=== PATIENT | male | born 1960 | race Caucasian/White ===

== ENCOUNTER 2017-09-24 10:37 | Emergency (ER) | payer BC, OTHER ==
[2017-09-24 10:48] VITALS: TEMP 98.5; O2SAT 98
[2017-09-24] MEDS ORDERED: Lidocaine 2% MPF (5 ml) Inj ONE (11:13)
--- NOTE | 2017-09-24 11:28 | C.PDOC ---
History Of Present Illness 57 y/o male presents to the ED complaining of a painful lump to the right buttocks, present for the past several weeks. Patient reports applying warm compresses and doing warm salt water soaks at home. Yesterday he noticed pus draining from the area. Otherwise he denies any fever, numbness, or weakness. Time Seen by Provider: 09/24/17 11:12 Chief Complaint (Nursing): Abnormal Skin Integrity History Per: Patient History/Exam Limitations: no limitations Onset/Duration Of Symptoms: Days Current Symptoms Are (Timing): Still Present Quality Of Symptoms: Draining Past Medical History Reviewed: Historical Data, Nursing Documentation, Vital Signs Vital Signs: Last Vital Signs Temp 98.5 F 09/24/17 10:45 Pulse 79 09/24/17 12:33 Resp 16 09/24/17 12:33 BP 129/85 09/24/17 12:33 Pulse Ox 98 09/24/17 12:33 - Medical History PMH: Diabetes, Hyperlipidemia Family History: States: No Known Family Hx - Social History Hx Tobacco Use: No Hx Alcohol Use: No Hx Substance Use: No - Immunization History Hx Tetanus Toxoid Vaccination: No Hx Influenza Vaccination: No Hx Pneumococcal Vaccination: No Review Of Systems Except As Marked, All Systems Reviewed And Found Negative. Constitutional: Negative for: Fever, Chills Skin: Positive for: Other (swollen lump to right buttocks, (+) drainage) Neurological: Negative for: Weakness, Numbness Physical Exam - Physical Exam Appears: Non-toxic, No Acute Distress Skin: Warm, Dry, Other (3.5 cm area of erythematous swelling to the right buttocks, (+) tender to palpation, with mild fluctuance) Head: Atraumatic, Normacephalic Eye(s): bilateral: Normal Inspection Oral Mucosa: Moist Neck: Normal ROM Extremity: Bilateral: Atraumatic, Normal ROM Neurological/Psych: Oriented x3, Normal Speech ED Course And Treatment O2 Sat by Pulse Oximetry: 98 (RA) Pulse Ox Interpretation: Normal - Incision & Drainage Of Abscess Anesthesia: Lidocaine 2% Prep Used: Sterile Water, Betadine Procedure: Incised W/Scalpel Blade#: (11), Irrigated Cavity W/Saline Medical Decision Making Medical Decision Making: Impression: Abscess to right buttocks Plan: Area of mild fluctuance noted, will attempt to perform I&D to drain any additional fluid. Given initial doses of PO Keflex and Bactrim. I&D performed *See procedure note* No pus was expressed from the wound. No packing applied. Patient is medically stable for discharge home. Given prescriptions for antibiotics and wound care instructions. Disposition Counseled Patient/Family Regarding: Diagnosis, Need For Followup, Rx Given - Disposition Referrals: Aiyana Harrington MD [Staff Provider] - Disposition: HOME/ ROUTINE Disposition Time: 12:20 Condition: STABLE Additional Instructions: TAKE ANTIBIOTICS UNTIL COMPLETED. FOLLOW UP WITH THE GENERAL SURGEON WITHIN 3-5 DAYS FOR WOUND CHECK. RETURN IF WORSENED. Prescriptions: Cephalexin [Keflex] 500 mg PO BID #14 capsule Sulfamethoxazole/Trimethoprim [Bactrim DS 800 mg-160 mg] 1 tab PO BID #14 tab Instructions: Skin Abscess Forms: [facility] (Belarusian) - POA Present On Arrival: None - Clinical Impression Clinical Impression: Abscess - PA / DISPATCHER REFINERY / Resident Statement MD/DO has reviewed & agrees with the documentation as recorded. - Scribe Statement The provider has reviewed the documentation as recorded by the Scribe (Gisela Nuno) All medical record entries made by the Scribe were at my direction and personally dictated by me. I have reviewed the chart and agree that the record accurately reflects my personal performance of the history, physical exam, medical decision making, and the department course for this patient. I have also personally directed, reviewed, and agree with the discharge instructions and disposition.
[2017-09-24] MEDS ORDERED: Tmp-Smz 800 mg-160 mg DS Tab PO STA (11:55)
[2017-09-24] MEDS ORDERED: Tmp-Smz 800 mg-160 mg DS Tab ONE (12:01)
[2017-09-24 12:34] VITALS: BP 129/85; PULSE 79; RESP 16
== END 2017-09-24 12:33 | disposition home or self-care (01) ==
LOC: C.ER 10:37
DX: L02.31 Cutaneous abscess of buttock (principal); E78.5 Hyperlipidemia, unspecified; E11.9 Type 2 diabetes mellitus without complications

== ENCOUNTER 2017-12-01 14:06 | Inpatient (IN) | payer OTHER ==
[2017-12-01 15:07] LABS: BASO % 0.9 % (0.0-2.0); EOS # 0.2 K/uL (0.0-0.7); EOS % 3.3 % (0.0-4.0); HEMOGLOBIN 14.1 g/dL (12.0-18.0); LYMPH # 1.3 K/uL (1.0-4.3); LYMPH % 28.4 % (20.0-40.0); MEAN CORPUSCULAR HEMOGLOBIN 31.5 pg (27.0-31.0); MEAN CORPUSCULAR HGB CONC 34.6 g/dL (33.0-37.0); MEAN PLATELET VOLUME 6.7 fL (7.2-11.7); MONO # 0.5 K/uL (0.0-0.8); MONO % 11.5 % (0.0-10.0); NEUT # 2.6 K/uL (1.8-7.0); NEUT % 55.9 % (50.0-75.0); NRBC % 0.3 % (0.0-2.0); RBC 4.46 Mil/uL (4.40-5.90); RED CELL DISTRIBUTION WIDTH 13.6 % (11.5-14.5); WHITE BLOOD COUNT 4.6 K/uL (4.8-10.8)
[2017-12-01 15:18] LABS: ALB/GLOB RATIO 1.1 (1.0-2.1); ALBUMIN 4.2 g/dL (3.5-5.0); ALT/SGPT 58 U/L (21-72); AST/SGOT 39 U/L (17-59); BLOOD UREA NITROGEN 12 mg/dL (9-20); CALCIUM 8.9 mg/dl (8.6-10.4); GFR NON-AFRICAN AMERICAN > 60
--- NOTE | 2017-12-01 15:26 | C.PDOC ---
History Of Present Illness 57 y/o male presents to the ER for evaluation of diarrhea which has been present for the past 4 days. Patient states that he was in [facility] for 1 month and he came back on 11/19/17. He notes that he has been taking Loperamide without relief. Patient is also complaining of multiple pimples to face. He states that he was evaluated by his PMD, , and his PMD advised him to visit the ER. His PMD was concerned that he may have MRSA so he sent him for labwork, blood cultures, IV abx, ID consult, and possible admission. Denies having fever, chills, CP, and SOB. Time Seen by Provider: 12/01/17 14:23 Chief Complaint (Nursing): Abdominal Pain History Per: Patient History/Exam Limitations: no limitations Onset/Duration Of Symptoms: Days Current Symptoms Are (Timing): Still Present Severity: Moderate Past Medical History Reviewed: Historical Data, Nursing Documentation, Vital Signs Vital Signs: Last Vital Signs Temp 97.5 F L 12/01/17 14:12 Pulse 78 12/01/17 14:12 Resp 18 12/01/17 14:12 BP 132/81 12/01/17 14:12 Pulse Ox 99 12/01/17 14:12 - Medical History PMH: Diabetes, Hyperlipidemia Other Surgeries: Hx of surgeries Family History: States: No Known Family Hx - Social History Hx Tobacco Use: No Hx Alcohol Use: No Hx Substance Use: No - Immunization History Hx Tetanus Toxoid Vaccination: No Hx Influenza Vaccination: No Hx Pneumococcal Vaccination: No Review Of Systems Except As Marked, All Systems Reviewed And Found Negative. Constitutional: Negative for: Fever, Chills Cardiovascular: Negative for: Chest Pain Respiratory: Negative for: Shortness of Breath Gastrointestinal: Positive for: Diarrhea. Negative for: Nausea, Vomiting Skin: Positive for: Other (pimples on face) Physical Exam - Physical Exam Appears: Non-toxic, No Acute Distress Skin: Warm, Dry, Other (left nostril: mild erythema with minimal induration, no purulent discharge right cheek: scabbed lesion with no erythema, no induration, and no purulent discharge) Head: Atraumatic, Normacephalic Eye(s): bilateral: Normal Inspection Nose: Normal Oral Mucosa: Moist Neck: Supple Chest: Symmetrical Cardiovascular: Rhythm Regular Respiratory: Normal Breath Sounds, No Rales, No Rhonchi, No Wheezing Gastrointestinal/Abdominal: Soft, Tenderness (mild diffuse tenderness), No Guarding, No Rebound Neurological/Psych: Oriented x3, Normal Speech ED Course And Treatment - Laboratory Results Result Diagrams: 12/01/17 15:00 12/01/17 15:00 O2 Sat by Pulse Oximetry: 99 (RA) Pulse Ox Interpretation: Normal Medical Decision Making Medical Decision Making: Plan: --Labs Lab results discussed wtih patient. Case discussed with Dr. Stephen for admission per PMD request. Accepts patient for admission. No abx given at this time- pending ID consult and blood cultures, however patient is afebrile with no leukocytosis at this point. Disposition - Disposition Disposition: HOSPITALIZED Disposition Time: 15:45 Condition: GOOD - Clinical Impression Clinical Impression: Facial rash, Diarrhea - Scribe Statement The provider has reviewed the documentation as recorded by the Chilango Quinteros Provider Attestation: All medical record entries made by the Chilango were at my direction and personally dictated by me. I have reviewed the chart and agree that the record accurately reflects my personal performance of the history, physical exam, medical decision making, and the department course for this patient. I have also personally directed, reviewed, and agree with the discharge instructions and disposition.
[2017-12-01 17:11] VITALS: RESP 20
[2017-12-01] MEDS: Ceftaroline 600 MG in Sodium Chloride 0.9% 100 ML IVPB SCH (21:39)
[2017-12-01] MEDS: Sodium Chloride 0.45% 1,000 ML IV SCH (21:39)
[2017-12-02 07:43] LABS: BASO % 0.8 % (0.0-2.0); EOS # 0.2 K/uL (0.0-0.7); EOS % 4.2 % (0.0-4.0); LYMPH # 1.5 K/uL (1.0-4.3); LYMPH % 32.8 % (20.0-40.0); MEAN CELL VOLUME 90.3 fL (80.0-94.0); MEAN CORPUSCULAR HEMOGLOBIN 32.2 pg (27.0-31.0); MEAN CORPUSCULAR HGB CONC 35.6 g/dL (33.0-37.0); MEAN PLATELET VOLUME 7.2 fL (7.2-11.7); MONO # 0.6 K/uL (0.0-0.8); MONO % 12.9 % (0.0-10.0); NEUT # 2.3 K/uL (1.8-7.0); NEUT % 49.3 % (50.0-75.0); NRBC % 0.1 % (0.0-2.0); RBC 4.04 Mil/uL (4.40-5.90); RED CELL DISTRIBUTION WIDTH 13.3 % (11.5-14.5); WHITE BLOOD COUNT 4.7 K/uL (4.8-10.8)
[2017-12-02 07:44] LABS: ALB/GLOB RATIO 1.1 (1.0-2.1); ALBUMIN 3.4 g/dL (3.5-5.0); ALT/SGPT 48 U/L (21-72); AST/SGOT 27 U/L (17-59); BLOOD UREA NITROGEN 9 mg/dL (9-20); CALCIUM 8.3 mg/dl (8.6-10.4); GFR NON-AFRICAN AMERICAN > 60
[2017-12-02] MEDS: Ceftaroline 600 MG in Sodium Chloride 0.9% 100 ML IVPB SCH ×3 (09:02→21:49)
[2017-12-02] MEDS: Sodium Chloride 0.45% 1,000 ML IV SCH ×2 (10:48→10:50)
[2017-12-02] MEDS: Enoxaparin 150 mg Syringe SC SCH (10:48)
[2017-12-02] MEDS: Saccharomyces Boulardi 250 mg Cap PO SCH ×2 (10:49→18:07)
--- NOTE | 2017-12-02 18:23 | CP.PCM.HP ---
Past Patient History - Past Social History Smoking Status: 0 - CARDIAC Hx Cardiac Disorders: Yes - ENDOCRINE/METABOLIC Hx Endocrine Disorders: Yes Hx Diabetes Mellitus Type 2: Yes - PSYCHIATRIC Hx Substance Use: No - SURGICAL HISTORY Hx Surgeries: Yes Other/Comment: kidney operation Meds Allergies/Adverse Reactions: Allergies Allergy/AdvReac Type Severity Reaction Status Date / Time No Known Allergies Allergy Verified 12/01/17 14:16 Results - Vital Signs Recent Vital Signs: Last Vital Signs Temp 97.8 F 12/02/17 16:00 Pulse 65 12/02/17 16:00 Resp 20 12/02/17 16:00 BP 147/78 12/02/17 16:00 Pulse Ox 99 12/02/17 16:28 - Labs Result Diagrams: 12/02/17 07:07 12/02/17 07:07 Labs: Laboratory Results - last 24 hr 12/01/17 12/02/17 12/02/17 21:22 06:28 07:07 WBC 4.7 L RBC 4.04 L Hgb 13.0 Hct 36.5 MCV 90.3 MCH 32.2 H MCHC 35.6 RDW 13.3 Plt Count 187 MPV 7.2 Neut % (Auto) 49.3 L Lymph % (Auto) 32.8 [place] % (Auto) 12.9 H Eos % (Auto) 4.2 H Baso % (Auto) 0.8 Neut # (Auto) 2.3 Lymph # (Auto) 1.5 [place] # (Auto) 0.6 Eos # (Auto) 0.2 Baso # (Auto) 0.0 ESR 79 H Sodium Potassium Chloride Carbon Dioxide Anion Gap BUN Creatinine Est GFR ( Amer) Est GFR (Non-Af Amer) POC Glucose (mg/dL) 241 H 132 H Random Glucose Calcium Total Bilirubin AST ALT Alkaline Phosphatase Total Protein Albumin Globulin Albumin/Globulin Ratio RPR 12/02/17 12/02/17 12/02/17 07:07 07:07 11:22 WBC RBC Hgb Hct MCV MCH MCHC RDW Plt Count MPV Neut % (Auto) Lymph % (Auto) [place] % (Auto) Eos % (Auto) Baso % (Auto) Neut # (Auto) Lymph # (Auto) [place] # (Auto) Eos # (Auto) Baso # (Auto) ESR Sodium 139 Potassium 4.2 Chloride 105 Carbon Dioxide 25 Anion Gap 13 BUN 9 Creatinine 0.9 Est GFR ( Amer) > 60 Est GFR (Non-Af Amer) > 60 POC Glucose (mg/dL) 191 H Random Glucose 132 H Calcium 8.3 L Total Bilirubin 0.7 AST 27 ALT 48 Alkaline Phosphatase 90 Total Protein 6.6 Albumin 3.4 L Globulin 3.2 Albumin/Globulin Ratio 1.1 RPR Nonreactive 12/02/17 16:35 WBC RBC Hgb Hct MCV MCH MCHC RDW Plt Count MPV Neut % (Auto) Lymph % (Auto) [place] % (Auto) Eos % (Auto) Baso % (Auto) Neut # (Auto) Lymph # (Auto) [place] # (Auto) Eos # (Auto) Baso # (Auto) ESR Sodium Potassium Chloride Carbon Dioxide Anion Gap BUN Creatinine Est GFR ( Amer) Est GFR (Non-Af Amer) POC Glucose (mg/dL) 179 H Random Glucose Calcium Total Bilirubin AST ALT Alkaline Phosphatase Total Protein Albumin Globulin Albumin/Globulin Ratio RPR
[2017-12-03] MEDS: Enoxaparin 150 mg Syringe SC SCH (09:20)
[2017-12-03] MEDS: Saccharomyces Boulardi 250 mg Cap PO SCH ×2 (09:20→18:24)
[2017-12-03] MEDS: Ceftaroline 600 MG in Sodium Chloride 0.9% 100 ML IVPB SCH ×2 (10:14→21:29)
[2017-12-03] MEDS: Sodium Chloride 0.45% 1,000 ML IV SCH (14:34)
--- NOTE | 2017-12-03 19:32 | CP.PCM.CON ---
History of Present Illness - History of Present Illness History of Present Illness: NETTE PIERRE MD, FACP INFECTIOUS DISEASE CONSULTATION 12/02/2017 [id number]-[id number] CHART REVIEWED PT EXAMINED 12/02/2017 CASE DISCUSSED 57 y/o male presents to the ER for evaluation of diarrhea which has been present for the past 4 days. Patient states that he was in [facility] for 1 month and he came back on 11/19/17. He notes that he has been taking Loperamide without relief. Patient is also complaining of multiple pimples to face. He states that he was evaluated by his PMD, , and his PMD advised him to visit the ER. His PMD was concerned that he may have MRSA so he sent him for labwork, blood cultures, IV abx, ID consult, and possible admission. Denies having fever, chills, CP, and SOB. Chief Complaint (Nursing): Abdominal Pain History Per: Patient History/Exam Limitations: no limitations Onset/Duration Of Symptoms: Days Current Symptoms Are (Timing): Still Present Severity: Moderate Past Medical History Reviewed: Historical Data, Nursing Documentation, Vital Signs Vital Signs: Last Vital Signs Temp 97.5 F L 12/01/17 14:12 Pulse 78 12/01/17 14:12 Resp 18 12/01/17 14:12 BP 132/81 12/01/17 14:12 Pulse Ox 99 12/01/17 14:12 - Medical History PMH: Diabetes, Hyperlipidemia Other Surgeries: Hx of surgeries Family History: States: No Known Family Hx - Social History Hx Tobacco Use: No Hx Alcohol Use: No Hx Substance Use: No - Immunization History Hx Tetanus Toxoid Vaccination: No Hx Influenza Vaccination: No Hx Pneumococcal Vaccination: No Review Of Systems Except As Marked, All Systems Reviewed And Found Negative. Constitutional: Negative for: Fever, Chills Cardiovascular: Negative for: Chest Pain Respiratory: Negative for: Shortness of Breath Gastrointestinal: Positive for: Diarrhea. Negative for: Nausea, Vomiting Skin: Positive for: Other (pimples on face) Physical Exam - Physical Exam Appears: Non-toxic, No Acute Distress Skin: Warm, Dry, Other (left nostril: mild erythema with minimal induration, no purulent discharge right cheek: scabbed lesion with no erythema, no induration, and no purulent discharge) Head: Atraumatic, Normacephalic; RIGHT FACIAL ABSCESS Eye(s): bilateral: Normal Inspection Nose: Normal;MINOR IRRITATION Oral Mucosa: Moist Neck: Supple Chest: Symmetrical;RIGHT BREAST -UPPER ABSCESS Cardiovascular: Rhythm Regular Respiratory: Normal Breath Sounds, No Rales, No Rhonchi, No Wheezing Gastrointestinal/Abdominal: Soft, Tenderness (mild diffuse tenderness), No Guarding, No Rebound Neurological/Psych: Oriented x3, Normal Speech ED Course And Treatment - Laboratory Results Result Diagrams: 12/01/17 15:00 12/01/17 15:00 O2 Sat by Pulse Oximetry: 99 (RA) Pulse Ox Interpretation: Normal Medical Decision Making Medical Decision Making: Plan: --Labs Disposition - Disposition Disposition: HOSPITALIZED Disposition Time: 15:45 Condition: GOOD - Clinical Impression Clinical Impression: Facial rash, Diarrhea ABSCESSES-UNDER CONTROL-R/O MRSA DIARRHEA BY HISTORY, R/O C. DIFF SEE EXTENSIVE ORDERS START TEFLARO 600 Q 12 REVIEW MY ORDERS AND NOTES PMD TO RX DM, ETC. NETTE PIERRE MD, FACP Past Patient History - Past Social History Smoking Status: 0 - CARDIAC Hx Cardiac Disorders: Yes - ENDOCRINE/METABOLIC Hx Endocrine Disorders: Yes Hx Diabetes Mellitus Type 2: Yes - PSYCHIATRIC Hx Substance Use: No - SURGICAL HISTORY Hx Surgeries: Yes Other/Comment: kidney operation Meds Allergies/Adverse Reactions: Allergies Allergy/AdvReac Type Severity Reaction Status Date / Time No Known Allergies Allergy Verified 12/01/17 14:16 - Medications Medications: Current Medications Enoxaparin Sodium (Lovenox) 40 mg SC DAILY [facility] Sodium Chloride (Sodium Chloride 0.45%) 1,000 mls @ 75 mls/hr IV .[id number] [facility] Last Admin: 12/03/17 14:34 Dose: Not Given Ceftaroline Fosamil 600 mg/ (Sodium Chloride) 100 mls @ 100 mls/hr IVPB Q12H [facility]; Protocol Last Admin: 12/03/17 10:14 Dose: 100 mls/hr Saccharomyces Boulardii (Florastor) 500 mg PO BID [facility] Last Admin: 12/03/17 18:24 Dose: 500 mg Results - Vital Signs Recent Vital Signs: Last Vital Signs Temp 97.3 F L 12/03/17 15:49 Pulse 71 12/03/17 15:49 Resp 20 12/03/17 15:49 BP 145/83 12/03/17 15:49 Pulse Ox 98 10/19/18 16:00 - Labs Result Diagrams: 12/02/17 07:07 12/02/17 07:07 Labs: Laboratory Results - last 24 hr 12/01/17 12/02/17 12/02/17 20:30 06:00 20:59 POC Glucose (mg/dL) 217 H Stool Leukocytes, Qual Negative C. difficile Ag & Toxin Negative 12/03/17 12/03/17 12/03/17 06:10 11:14 16:27 POC Glucose (mg/dL) 195 H 239 H 218 H Stool Leukocytes, Qual C. difficile Ag & Toxin
--- NOTE | 2017-12-03 19:34 | CP.PCM.CON ---
History of Present Illness - History of Present Illness History of Present Illness: Surgery consult note for Dr. Kathleen Consult for: right cheek abscess 57 y/o male with PMH of DM, HLD was seen and examined at bedside for right cheek abscess. Patient was initially admitted to ED on 12/01 for diarrhea and abdominal pain. Patient received antibiotics and transferred to the floor. Patient no longer complains of abdominal pain with reduced episodes of diarrhea but has swelling in his right lutheran, between his right ear and right eye, which he believes was a swollen pimple. Patient denies any drainage from the area, and states it has improved since he started the antibiotics. He denies any fevers, chills, chest pain, SOB, Nausea, Vomiting, or abdominal pain. Patient's does admit to traveling to [facility] for 1 month and returned on 11/19. Patient denies any dental work up. PMH: DM, HLD PSH: renal surgery ALL: NKDA Review of Systems - Review of Systems All systems: reviewed and no additional remarkable complaints except (as per HPI) Past Patient History - Past Medical History & Family History Past Medical History?: Yes Past Family History: Reviewed and not pertinent - CARDIAC Hx Cardiac Disorders: Yes - ENDOCRINE/METABOLIC Hx Endocrine Disorders: Yes Hx Diabetes Mellitus Type 2: Yes - PSYCHIATRIC Hx Substance Use: No - SURGICAL HISTORY Hx Surgeries: Yes Other/Comment: kidney operation Meds Allergies/Adverse Reactions: Allergies Allergy/AdvReac Type Severity Reaction Status Date / Time No Known Allergies Allergy Verified 12/01/17 14:16 - Medications Medications: Current Medications Enoxaparin Sodium (Lovenox) 40 mg SC DAILY [facility] Sodium Chloride (Sodium Chloride 0.45%) 1,000 mls @ 75 mls/hr IV .[id number] [facility] Last Admin: 12/03/17 14:34 Dose: Not Given Ceftaroline Fosamil 600 mg/ (Sodium Chloride) 100 mls @ 100 mls/hr IVPB Q12H [facility]; Protocol Last Admin: 12/03/17 10:14 Dose: 100 mls/hr Saccharomyces Boulardii (Florastor) 500 mg PO BID [facility] Last Admin: 12/03/17 18:24 Dose: 500 mg Physical Exam - Constitutional Appears: Well, Non-toxic, No Acute Distress - Head Exam Head Exam: ATRAUMATIC, NORMOCEPHALIC Additional comments: right lutheran with mild swelling, no erythema, no fluctuance, no drainage - Eye Exam Eye Exam: EOMI, Normal appearance. absent: Conjunctival injection, Scleral icterus - ENT Exam ENT Exam: Mucous Membranes Moist, Normal Oropharynx - Respiratory Exam Respiratory Exam: NORMAL BREATHING PATTERN. absent: Accessory Muscle Use, Respiratory Distress - Cardiovascular Exam Cardiovascular Exam: RRR - GI/Abdominal Exam GI & Abdominal Exam: Soft. absent: Distended, Tenderness - Extremities Exam Extremities exam: Positive for: pedal pulses present. Negative for: calf tenderness, pedal edema - Neurological Exam Neurological exam: Alert, Oriented x3 - Psychiatric Exam Psychiatric exam: Normal Affect, Normal Mood - Skin Skin Exam: Dry, Intact, Normal Color, Warm Results - Vital Signs Recent Vital Signs: Last Vital Signs Temp 97.3 F L 12/03/17 15:49 Pulse 71 12/03/17 15:49 Resp 20 12/03/17 15:49 BP 145/83 12/03/17 15:49 Pulse Ox 98 12/03/17 16:00 - Labs Result Diagrams: 12/02/17 07:07 12/02/17 07:07 Labs: Laboratory Results - last 24 hr 12/01/17 12/02/17 12/02/17 20:30 06:00 20:59 POC Glucose (mg/dL) 217 H Stool Leukocytes, Qual Negative C. difficile Ag & Toxin Negative 12/03/17 12/03/17 12/03/17 06:10 11:14 16:27 POC Glucose (mg/dL) 195 H 239 H 218 H Stool Leukocytes, Qual C. difficile Ag & Toxin Assessment & Plan - Assessment and Plan (Free Text) Assessment: 57M with swelling of the skin of the right lutheran Plan: No surgical intervention indicated--no area of fluctuance or erythema concerning for abscess at this time--patient appears to be improving with antibiotics Antibiotics per ID Continue medical management per primary Reach out to surgical team for any further questions or concerns Seen with Dr. Kathleen, who agrees with above Meagan Tellez, PGY2
--- NOTE | 2017-12-03 19:37 | CP.PCM.PN ---
Subjective - Date & Time of Evaluation Date of Evaluation: 12/03/17 Time of Evaluation: 19:34 - Subjective Subjective: INFECTIOUS DISEASE PROGRESS NOTES NETTE PIERRE MD, FACP 12/03/2017 CHART REVIEWED EXAM NOTE CASE DISCUSSED WITH STAFF C/S + MRSA continue mrsa rx with jenniferaro CALLED DR NEVES FOR I&D OF RIGHT FACE AND LEFT BREAST ABSCESS IF APPROPIATE. IF SO THEN WE CAN CONSIDER HOME TREATMENT NO DIARRHEA SINCE IN THE HOSPITAL. Objective - Vital Signs/Intake and Output Vital Signs (last 24 hours): Temp Pulse Resp BP Pulse Ox 97.3 F L 71 20 145/83 98 12/03/17 15:49 12/03/17 15:49 12/03/17 15:49 12/03/17 15:49 12/03/17 16:00 - Medications Medications: Current Medications Enoxaparin Sodium (Lovenox) 40 mg SC DAILY [facility] Sodium Chloride (Sodium Chloride 0.45%) 1,000 mls @ 75 mls/hr IV .[id number] [facility] Last Admin: 12/03/17 14:34 Dose: Not Given Ceftaroline Fosamil 600 mg/ (Sodium Chloride) 100 mls @ 100 mls/hr IVPB Q12H [facility]; Protocol Last Admin: 12/03/17 10:14 Dose: 100 mls/hr Saccharomyces Boulardii (Florastor) 500 mg PO BID [facility] Last Admin: 12/03/17 18:24 Dose: 500 mg - Labs Labs: 12/02/17 07:07 12/02/17 07:07
--- NOTE | 2017-12-03 19:44 | CP.PCM.PN ---
Subjective - Date & Time of Evaluation Date of Evaluation: 12/03/17 Time of Evaluation: 19:44 Objective - Vital Signs/Intake and Output Vital Signs (last 24 hours): Temp Pulse Resp BP Pulse Ox 97.3 F L 71 20 145/83 98 12/03/17 15:49 12/03/17 15:49 12/03/17 15:49 12/03/17 15:49 12/03/17 16:00 - Medications Medications: Current Medications Enoxaparin Sodium (Lovenox) 40 mg SC DAILY [facility] Sodium Chloride (Sodium Chloride 0.45%) 1,000 mls @ 75 mls/hr IV .[id number] [facility] Last Admin: 12/03/17 14:34 Dose: Not Given Ceftaroline Fosamil 600 mg/ (Sodium Chloride) 100 mls @ 100 mls/hr IVPB Q12H [facility]; Protocol Last Admin: 12/03/17 10:14 Dose: 100 mls/hr Saccharomyces Boulardii (Florastor) 500 mg PO BID [facility] Last Admin: 12/03/17 18:24 Dose: 500 mg - Labs Labs: 12/02/17 07:07 12/02/17 07:07
[2017-12-04 06:07] LABS: BASO % 0.6 % (0.0-2.0); EOS # 0.2 K/uL (0.0-0.7); EOS % 3.7 % (0.0-4.0); HEMOGLOBIN 13.2 g/dL (12.0-18.0); LYMPH # 1.6 K/uL (1.0-4.3); LYMPH % 35.4 % (20.0-40.0); MEAN CELL VOLUME 90.8 fL (80.0-94.0); MEAN CORPUSCULAR HEMOGLOBIN 32.3 pg (27.0-31.0); MEAN CORPUSCULAR HGB CONC 35.6 g/dL (33.0-37.0); MEAN PLATELET VOLUME 6.8 fL (7.2-11.7); MONO # 0.5 K/uL (0.0-0.8); MONO % 10.2 % (0.0-10.0); NEUT # 2.3 K/uL (1.8-7.0); NEUT % 50.1 % (50.0-75.0); RBC 4.08 Mil/uL (4.40-5.90); RED CELL DISTRIBUTION WIDTH 13.5 % (11.5-14.5); WHITE BLOOD COUNT 4.6 K/uL (4.8-10.8)
[2017-12-04 06:29] LABS: ALBUMIN 3.3 g/dL (3.5-5.0); ALT/SGPT 36 U/L (21-72); AST/SGOT 19 U/L (17-59); BLOOD UREA NITROGEN 14 mg/dL (9-20); CALCIUM 8.6 mg/dl (8.6-10.4); GFR NON-AFRICAN AMERICAN > 60
[2017-12-04] MEDS: Saccharomyces Boulardi 250 mg Cap PO SCH ×2 (09:15→17:27)
[2017-12-04] MEDS: Enoxaparin 40 mg Syringe SC SCH (09:15)
[2017-12-04] MEDS: Ceftaroline 600 MG in Sodium Chloride 0.9% 100 ML IVPB SCH ×2 (10:06→22:03)
[2017-12-04] MEDS: Sodium Chloride 0.45% 1,000 ML IV SCH (10:09)
--- NOTE | 2017-12-04 10:50 | CP.PCM.PN ---
Subjective - Date & Time of Evaluation Date of Evaluation: 12/04/17 Time of Evaluation: 10:50 - Subjective Subjective: Patient is seen and examined No events overnight Afebrile Objective - Vital Signs/Intake and Output Vital Signs (last 24 hours): Temp Pulse Resp BP Pulse Ox 97.8 F 70 20 137/87 97 12/04/17 07:00 12/04/17 07:00 12/04/17 07:00 12/04/17 07:00 12/04/17 07:00 Intake and Output: 12/04/17 12/04/17 06:59 18:59 Intake Total 1800 Balance 1800 - Medications Medications: Current Medications Enoxaparin Sodium (Lovenox) 40 mg SC DAILY [facility] Last Admin: 12/04/17 09:15 Dose: 40 mg Sodium Chloride (Sodium Chloride 0.45%) 1,000 mls @ 75 mls/hr IV .[id number] [facility] Last Admin: 12/04/17 10:09 Dose: 75 mls/hr Ceftaroline Fosamil 600 mg/ (Sodium Chloride) 100 mls @ 100 mls/hr IVPB Q12H [facility]; Protocol Last Admin: 12/04/17 10:06 Dose: 100 mls/hr Saccharomyces Boulardii (Florastor) 500 mg PO BID [facility] Last Admin: 12/04/17 09:15 Dose: 500 mg - Labs Labs: 12/04/17 06:02 12/04/17 06:02 - Head Exam Head Exam: NORMAL INSPECTION - Eye Exam Eye Exam: Normal appearance - ENT Exam ENT Exam: Mucous Membranes Moist - Respiratory Exam Respiratory Exam: Clear to Ausculation Bilateral - Cardiovascular Exam Cardiovascular Exam: REGULAR RHYTHM, +S1, +S2 - GI/Abdominal Exam GI & Abdominal Exam: Soft, Normal Bowel Sounds - Extremities Exam Extremities Exam: Normal Inspection - Neurological Exam Neurological Exam: Alert, Oriented x3 - Psychiatric Exam Psychiatric exam: Normal Affect, Normal Mood Assessment and Plan (1) Diarrhea Status: Acute (2) Facial rash Status: Acute (3) Abscess Status: Acute - Assessment and Plan (Free Text) Plan: Continue Abx Surgery consult appreciated d/c IVF D/c planning once cleared by ID DVT/GI prophalaxis
[2017-12-04] MEDS ORDERED: Mupirocin 2% Ointment (NASAL) NAS SCH (18:15)
[2017-12-04] MEDS: Mupirocin 2% Ointment (NASAL) NAS SCH (18:58)
--- NOTE | 2017-12-04 23:50 | CP.PCM.PN ---
Subjective - Date & Time of Evaluation Date of Evaluation: 12/04/17 Time of Evaluation: 18:00 - Subjective Subjective: INFECTIOUS DISEASE PROGRESS NOTES NETTE PIERRE MD, FACP 12/04/2017 5T 570 CHART REVIEWED EXAMIN NOTED CASE DISCUSSED WOUNDSS HEALING NARIS C/S + MRSA GIVEN RX FOR BACTROBAN OINTMENT BID TO BOTH NARIS DISCUSSED WITH SURGEON AND PMD CONSIDER SWITCHING TO VIBRAMYCIN 100 BID X 7-10 DAYS TO FOLLOW UP WITH PMD NETTE PIERRE MD, FACP Objective - Vital Signs/Intake and Output Vital Signs (last 24 hours): Temp Pulse Resp BP Pulse Ox 98.1 F 70 20 136/78 96 12/04/17 15:00 12/04/17 15:00 12/04/17 15:00 12/04/17 15:00 12/04/17 16:00 Intake and Output: 12/04/17 12/05/17 18:59 06:59 Intake Total 900 Balance 900 - Medications Medications: Current Medications Enoxaparin Sodium (Lovenox) 40 mg SC DAILY [facility] Last Admin: 12/04/17 09:15 Dose: 40 mg Ceftaroline Fosamil 600 mg/ (Sodium Chloride) 100 mls @ 100 mls/hr IVPB Q12H [facility]; Protocol Last Admin: 12/04/17 22:03 Dose: 100 mls/hr Mupirocin (Bactroban 2% Nasal) 0.5 gm GILBERTO BID [facility] Last Admin: 12/04/17 18:58 Dose: 0.5 gm Saccharomyces Boulardii (Florastor) 500 mg PO BID [facility] Last Admin: 12/04/17 17:27 Dose: 500 mg - Labs Labs: 12/04/17 06:02 12/04/17 06:02
[2017-12-05 08:25] VITALS: O2SAT 98
[2017-12-05] MEDS: Saccharomyces Boulardi 250 mg Cap PO SCH ×2 (09:11→17:57)
[2017-12-05] MEDS: Mupirocin 2% Ointment (NASAL) NAS SCH ×2 (09:23→17:57)
[2017-12-05] MEDS: Enoxaparin 40 mg Syringe SC SCH (10:05)
[2017-12-05] MEDS: Ceftaroline 600 MG in Sodium Chloride 0.9% 100 ML IVPB SCH ×2 (10:06→22:25)
--- NOTE | 2017-12-05 17:28 | CP.PCM.PN ---
Subjective - Date & Time of Evaluation Date of Evaluation: 12/05/17 Time of Evaluation: 17:27 Objective - Vital Signs/Intake and Output Vital Signs (last 24 hours): Temp Pulse Resp BP Pulse Ox 97.8 F 72 20 145/86 98 12/05/17 15:00 12/05/17 15:00 12/05/17 15:00 12/05/17 15:00 12/05/17 15:00 - Medications Medications: Current Medications Enoxaparin Sodium (Lovenox) 40 mg SC DAILY [facility] Last Admin: 12/05/17 10:05 Dose: 40 mg Ceftaroline Fosamil 600 mg/ (Sodium Chloride) 100 mls @ 100 mls/hr IVPB Q12H [facility]; Protocol Last Admin: 12/05/17 10:06 Dose: 100 mls/hr Mupirocin (Bactroban 2% Nasal) 0.5 gm GILBERTO BID [facility] Last Admin: 12/05/17 09:23 Dose: 0.5 gm Saccharomyces Boulardii (Florastor) 500 mg PO BID [facility] Last Admin: 12/05/17 09:11 Dose: 500 mg - Labs Labs: 12/04/17 06:02 12/04/17 06:02 Assessment and Plan (1) Diarrhea Status: Acute (2) Facial rash Status: Acute (3) Abscess Status: Acute
[2017-12-06 08:59] VITALS: BP 135/78; PULSE 61; TEMP 97.8
[2017-12-06] MEDS: Saccharomyces Boulardi 250 mg Cap PO SCH (09:57)
[2017-12-06] MEDS: Enoxaparin 40 mg Syringe SC SCH (09:57)
[2017-12-06] MEDS: Ceftaroline 600 MG in Sodium Chloride 0.9% 100 ML IVPB SCH (09:58)
[2017-12-06] MEDS: Mupirocin 2% Ointment (NASAL) NAS SCH (10:44)
--- NOTE | 2017-12-06 11:46 | CP.PCM.PN ---
Subjective - Date & Time of Evaluation Date of Evaluation: 12/06/17 Time of Evaluation: 11:46 - Subjective Subjective: PATIENT SEEN AND EXAMINED Objective - Vital Signs/Intake and Output Vital Signs (last 24 hours): Temp Pulse Resp BP Pulse Ox 97.8 F 61 20 135/78 98 12/06/17 08:00 12/06/17 08:00 12/06/17 08:00 12/06/17 08:00 12/06/17 08:00 - Medications Medications: Current Medications Enoxaparin Sodium (Lovenox) 40 mg SC DAILY [facility] Last Admin: 12/06/17 09:57 Dose: 40 mg Ceftaroline Fosamil 600 mg/ (Sodium Chloride) 100 mls @ 100 mls/hr IVPB Q12H [facility]; Protocol Last Admin: 12/06/17 09:58 Dose: 100 mls/hr Mupirocin (Bactroban 2% Nasal) 0.5 gm GILBERTO BID [facility] Last Admin: 12/06/17 10:44 Dose: 0.5 gm Saccharomyces Boulardii (Florastor) 500 mg PO BID [facility] Last Admin: 12/06/17 09:57 Dose: 500 mg - Labs Labs: 12/04/17 06:02 12/04/17 06:02 Assessment and Plan - Assessment and Plan (Free Text) Assessment: FOLLOW UP WITH PMD AT HIS OFFICE ----CALL FOR APPOINTMENT CONTINUE HOME MEDICATION NEW PRESCRIPTION GIVEN VIBRAMYCIN 100 MG PO Q12H FOR 10 DAYS BACTROBAN 2% BID EACH NASTRIL FOR 5 DAYS FLORASTOR 500 MG PO BID FOR [address] ACT[address]OL[address]ATED [address] GANT OR PMD OR GO TO THE EMERGENCY ROOM IF SYMPTOM RETURN OR WORSENING
== END 2017-12-06 12:15 | disposition home or self-care (01) | DRG 603 ==
LOC: C.ER 14:06 → C.9E 15:54 → C.5S 19:41 → OBSVTOIN 12-05 10:43 → C.ER 12-05 14:06 → C.9E 12-05 15:54 → C.5S 12-05 19:41
PROVIDERS: ADMIT Internal Medicine Critical Care Medicine; ATTEND Internal Medicine Critical Care Medicine
DX: L02.01 Cutaneous abscess of face (principal); E11.9 Type 2 diabetes mellitus without complications; E78.5 Hyperlipidemia, unspecified; N61.1 Abscess of the breast and nipple; R19.7 Diarrhea, unspecified